=== PATIENT | female | born 1985 | race Caucasian/White ===

== ENCOUNTER 2018-09-07 16:39 | Emergency (ER) | payer OTHER ==
[~2018-09-07] VITALS: Ht 167.6 cm; Wt 99.8 kg
[2018-09-07 16:39] VITALS: BP 133/78
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
[2018-09-07] MEDS ORDERED: HYDROcodone/APAP 5/325MG 1 TAB TABLET PO ONE (19:30)
[2018-09-07] MEDS ORDERED: IBUP-1060 PO (19:36)
[2018-09-07] MEDS ORDERED: HYDR-3164 PO (19:36)
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
== END 2018-09-07 19:45 | disposition home or self-care (01) ==
LOC: ER 16:39
DX: S92.411A Displaced fracture of proximal phalanx of right great toe, initial encounter for closed fracture (principal); S09.90XA Unspecified injury of head, initial encounter; V43.52XA Car driver injured in collision with other type car in traffic accident, initial encounter; Y93.I9 Activity, other involving external motion; Y92.488 Other paved roadways as the place of occurrence of the external cause; Y99.8 Other external cause status
CPT/HCPCS: 70450; 72125; 73660; 99284-25